=== PATIENT | male | born 2000 | race Caucasian/White ===

== ENCOUNTER 2023-05-09 05:32 | Emergency (ER) | payer OTHER, SELFPAY ==
--- NOTE | ~2023-05-09 | CT_ITS ---
EXAMINATION: CT abdomen pelvis w con DATE: 05/09/2023 06:25 INDICATION: Recurrent abdominal pain, nausea and vomiting TECHNIQUE: Computed tomography (CT) of the abdomen and pelvis was performed with 100 mL Omnipaque-350 intravenous contrast. Automated exposure control and iterative reconstruction technique were employe d. The dose-length product was 730.36 mGy-cm. COMPARISON: None FINDINGS: Lung bases are clear. Heart size is normal. No pericardial or pleural effusion. Liver, gallbladder, s pleen, pancreas, bilateral adrenal glands and kidneys are normal. There is a 2 mm nonobstructing ston e in the distal right ureter. Bowels including the appendix are normal. Bladder is normal. No free in traperitoneal gas or fluid. No pathologically enlarged abdominal or pelvic lymphadenopathy. Bones are unremarkable. IMPRESSION: 1. Nonobstructing 2 mm distal right ureteral stone. Reviewed, dictated and finalized at location A.
[2023-05-09 05:33] VITALS: BP 122/69; PULSE 56; RESP 14; TEMP 36.4; O2SAT 100
--- NOTE | 2023-05-09 05:44 | ED.GENADULT ---
HPI - General Adult General Chief complaint: Unspecified <Fauzia Reyes MD - Last Filed: 05/09/23 06:57> Stated complaint: R flank pain <Fauzia Reyes MD - Last Filed: 05/09/23 06:57> Time Seen by Provider: 05/09/23 05:43 <Fauzia Reyes MD - Last Filed: 05/09/23 06:57> History of Present Illness HPI narrative: 23-year-old male presents with acute onset right lower quadrant pain that started about 15 minutes prior to presentation here, with nausea. No symptoms like this before, no history of appendicitis or kidney stones. No testicular pain, no dysuria or hematuria no fevers or chills <Fauzia Reyes MD - Last Filed: 05/09/23 06:57> Related Data Allergies/adverse reactions: Allergies Allergy/AdvReac Type Severity Reaction Status Date / Time No Known Allergies Allergy Verified 05/09/23 05:48 <Fauzia Reyes MD - Last Filed: 05/09/23 06:57> Review of Systems Review of Systems: CONST: No fever. HEENT: No sore throat C/V: No chest pain RESP: No cough GI: Reports abdominal pain, nausea : No dysuria. M/S: No joint pain. SKIN: No rash. NEURO: [No headache or focal numbness or weakness] PSYCH: [No depression] <Fauzia Reyes MD - Last Filed: 05/09/23 06:57> Exam Narrative: EXAMINATION OF ORGAN SYSTEMS/BODY AREAS: Constitutional: Vital signs per nursing GENERAL: Appears quite uncomfortable HEAD: Normal with no signs of head trauma. EYES: EOMI, conjunctiva normal ENT: Hearing grossly intact LUNGS: Nonlabored breathing. HEART: [Regular rate and rhythm] ABD: [Soft], [tender to palpation] right lower quadrant EXT: Normal range of motion SKIN: [No rashes or lesions.] NEURO: [Alert and oriented x 3. No gross focal sensory or strength deficits.] PSYCH: Normal affect <Fauzia Reyes MD - Last Filed: 05/09/23 06:57> Course Reevaluation(s) Reevaluation #1: Patient care was signed out to me by Dr. Hsu. CT was pending at time of signout. CT did confirm a 2 mm ureteral stone. Patient was updated on the results of the work-up and plan for treatment at home. Patient was comfortable with the plan for discharge and close follow-up. Patient's pain was controlled at time of discharge. All questions concerns were addressed. <Jovanny Ortiz MD - Last Filed: 05/09/23 16:01> Vital Signs Vital signs: Vital Signs Temperature 97.5 F L 05/09/23 05:33 Pulse Rate 56 L 05/09/23 05:33 Respiratory Rate 14 05/09/23 05:33 Blood Pressure 122/69 05/09/23 05:33 Pulse Oximetry 100 05/09/23 05:33 Oxygen Delivery Room Air 05/09/23 05:33 Temperature 97.5 F L 05/09/23 05:33 Pulse Rate 60 05/09/23 08:22 Respiratory Rate 18 05/09/23 08:22 Blood Pressure 125/82 05/09/23 08:22 Pulse Oximetry 99 05/09/23 08:22 Oxygen Delivery Room Air 05/09/23 05:33 <Fauzia Reyes MD - Last Filed: 05/09/23 06:57> Vital Signs Temperature 97.5 F L 05/09/23 05:33 Pulse Rate 56 L 05/09/23 05:33 Respiratory Rate 14 05/09/23 05:33 Blood Pressure 122/69 05/09/23 05:33 Pulse Oximetry 100 05/09/23 05:33 Oxygen Delivery Room Air 05/09/23 05:33 Temperature 97.5 F L 05/09/23 05:33 Pulse Rate 60 05/09/23 08:22 Respiratory Rate 18 05/09/23 08:22 Blood Pressure 125/82 05/09/23 08:22 Pulse Oximetry 99 05/09/23 08:22 Oxygen Delivery Room Air 05/09/23 05:33 <Jovanny Ortiz MD - Last Filed: 05/09/23 16:01> Medical Decision Making MDM Narrative Medical decision making narrative: Electronic medical record was reviewed. Patient presented to the ED with complaint of [abdominal pain and vomiting]. Vitals [were within acceptable limits]. Physical exam revealed tenderness to the right lower quadrant, no CVA tenderness, patient quite uncomfortable. Based on the patient's history and physical exam, my differential includes but is not limited to [kidney stone, gastritis/gastroenteritis, appendicitis]. [IV access was established by nursing s
[2023-05-09 05:56] LABS: Basophils Absolute Auto 0.1 K/mm3 (0.0-0.1); Basophils Percent Auto 0.7 % (0.2-1.2); Eosinophils Absolute Auto 0.3 K/mm3 (0-0.3); Hematocrit 48.1 % (42.0-52.0); Hemoglobin 16.6 g/dL (14.0-18.0); Immature Granulocyte Absolute 0.03 K/mm3 (0.00-0.031); Immature Granulocyte Percent A 0.3 % (0-0.5); Lymphocytes Absolute Auto 3.89 K/mm3 (0.9-3.2); Lymphocytes Percent Auto 41.2 % (18.3-44.2); Mean Corpuscular HGB Conc 34.5 g/dl (32-36); Mean Corpuscular Hemoglobin 30.5 pg (26-34); Mean Corpuscular Volume 88.3 fl (80-100); Mean Platelet Volume 10.4 fl (7.4-10.4); Monocytes Absolute Auto 0.9 K/mm3 (0.1-0.6); Monocytes Percent Auto 9.8 % (2.6-8.5); Neutrophils Absolute Auto 4.3 K/mm3 (1.3-6.7); Platelet Count Result 295 k/mm3 (150-375); Red Blood Count 5.45 M/mm3 (4.6-6.20); Red Cell Distribution Width 11.9 % (11.5-14.5); White Blood Count 9.5 K/mm3 (4.5-10.0)
[2023-05-09] MEDS: MORPHINE SULFATE (*CRX) 4 MG/ML INJ IV PUSH (05:57)
[2023-05-09] MEDS: LACTATED RINGERS 1,000 ML 999 ML IV CONT (05:57)
[2023-05-09] MEDS: ONDANSETRON INJ 4 MG/2 ML VIAL IV PUSH (05:58)
[2023-05-09 06:06] LABS: Alanine Aminotransferase 48 U/L (6-50); Albumin Level 4.7 g/dL (3.5-5.1); Alkaline Phosphatase 98 U/L (38-126); Anion Gap 9 mmol/L (8-16); Aspartate Amino Transferase 42 U/L (17-59); Bilirubin,Total 1.3 mg/dL (0.2-1.3); Blood Urea Nitrogen 18 mg/dL (9-20); Calcium 9.6 mg/dL (8.4-10.2); Carbon Dioxide 25 mmol/L (22-30); Chloride 103 mmol/L (98-107); Estimated CRCL calculation 91 ml/min; Estimated Glomerular Filt Rate > 60; Glucose 134 mg/dL (65-110); Lipase 74 U/L (23-300); Potassium 3.8 mmol/L (3.4-5.0); Sodium 137 mmol/L (137-145)
[2023-05-09] MEDS: diphenhydrAMINE HCl INJ 50 MG/ML VIAL 25 MG IV PUSH (06:50)
[2023-05-09] MEDS: METOCLOPRAMIDE HCL INJ 10 MG/2 ML VIAL IV PUSH (06:51)
[2023-05-09] MEDS: HYDROmorphone HCL INJ (*CRX) 1 MG/ML SYR 0.5 MG IV PUSH (07:06)
[2023-05-09 07:11] VITALS: BP 115/73; PULSE 60; RESP 20; O2SAT 98
[2023-05-09] MEDS: TAMSULOSIN HCL 0.4 MG CAPSULE PO (08:11)
[2023-05-09 08:22] VITALS: BP 125/82; PULSE 60; RESP 18; O2SAT 99
[2023-05-09 08:26] LABS: Appearance Urine Clear (Clear); Bacteria Urine None Seen /hpf; Bilirubin Urine Negative (Negative); Blood Urine 2+ (Negative); Color Urine Yellow (Yellow); Glucose Urine UA Negative (Negative); Ketones Urine Negative (Negative); Leukocyte Esterase Ur Negative LEU/UL (Negative); Nitrate Urine Negative (Negative); Non Pathogenic Casts 0-2; Protein Urine Negative (Negative); Specific Grav Ur 1.063 (1.001-1.035); Squamous Epithelial Cell Urine None seen /hpf (Few); Urobilinogen Urine 0.2 mg/dL (<2.0); WBC Urine 0-5 /hpf; pH Urine 5.5 (5.0-9.0)
[2023-05-09 08:27] LABS: Add Urine Microscopic? YES
== END 2023-05-09 08:24 | disposition home or self-care (01) ==
PROVIDERS: Emergency Provider Emergency Medicine
DX: N20.1 Calculus of ureter (principal)
CPT/HCPCS: 36415; 74177; 80053; 81001; 83690; 85025; 96361; 96374; 96375; 99284; A9270; J1170; J1200; J2270; J2405; J2765; J7120; Q9967

== ENCOUNTER 2024-07-21 05:35 | Emergency (ER) | payer OTHER, SELFPAY ==
[2024-07-21] VITALS (7 sets, daily range): BP systolic 129–153; BP diastolic 82–92; PULSE 69–112; RESP 14–18; TEMP 36.2–36.8; O2SAT 97–100
--- NOTE | ~2024-07-21 | XR_ITS ---
EXAMINATION: XR foot LT min 3V DATE: 07/21/2024 07:26 INDICATION: Lateral left foot pain and swelling without injury TECHNIQUE: Dorsoplantar, two oblique and lateral views of the left foot were obtained. COMPARISON: None. FINDINGS: Alignment is normal. No fracture. Joint spaces are normal. There is soft tissue swelling along the la teral left forefoot. IMPRESSION: 1. No osseous abnormality. Reviewed, dictated and finalized at location A. IMPRESSION: 1. No osseous abnormality.
--- NOTE | 2024-07-21 06:28 | ED.EXTPRO ---
HPI - Extremity Problem General Chief complaint: Extremity Problem,Nontraumatic <Harley Madrid MD - Last Filed: 07/21/24 06:49> Stated complaint: foot pain <Harley Madrid MD - Last Filed: 07/21/24 06:49> Time Seen by Provider: 07/21/24 05:45 <Harley Madrid MD - Last Filed: 07/21/24 06:49> History of Present Illness HPI Narrative: Patient is a 24-year-old male who presents ER with pain to left ankle. Lateral aspect. Radiates towards calf at times. Today it is radiating towards mid foot. No numbness or tingling. No known trauma. <Harley Madrid MD - Last Filed: 07/21/24 06:49> Related Data Allergies/Adverse reactions: Allergies Allergy/AdvReac Type Severity Reaction Status Date / Time No Known Allergies Allergy Verified 05/09/23 05:48 <Harley Madrid MD - Last Filed: 07/21/24 06:49> Review of Systems Constitutional: Constitutional: Reports no additional constitutional complaints <Harley Madrid MD - Last Filed: 07/21/24 06:49> Musculoskeletal: Musculoskeletal: Reports arthralgias, Denies joint swelling and Denies muscle cramps <Harley Madrid MD - Last Filed: 07/21/24 06:49> Neurologic: Reports system reviewed and no additional complaints, except as documented <Harley Madrid MD - Last Filed: 07/21/24 06:49> PMFSH Past Medical History Medical History: Medical History (Updated 07/21/24 @ 11:09 by Dionna Car MD) Healthy adult male <Harley Madrid MD - Last Filed: 07/21/24 06:49> Surgical History Surgical History: Surgical History (Updated 07/21/24 @ 06:31 by Harley Madrid MD) No history of previous surgery <Harley Madrid MD - Last Filed: 07/21/24 06:49> Exam Narrative: GENERAL: Well-appearing, well-nourished, and in no acute distress. HEAD: Normocephalic, atraumatic. HEART: Regular rate and rhythm. Normal peripheral pulses. EXTREMITIES: Normal range of motion. No edema. mild tenderness over the ATFL of the left ankle. No swelling or redness. SKIN: Warm, dry, no rash. NEURO: No focal deficits in the left foot. Alert and oriented x3. PSYCH: Normal mood and affect. <Harley Madrid MD - Last Filed: 07/21/24 06:49> Course Course Emergency Course: Patient signed out to me at 7:00 a.m. patient pending Radiology interpretation of x-ray. Attending physician did not feel it was likely fractured and suspected an ankle sprain. X-ray negative. When I did go to discussed with the patient, patient is concerned about gout especially given that there was no preceding trauma or trip/misstep. He states he has had an episode before and has an extensive family history of gout. Will empirically treat initially with colchicine and obtain serum uric acid and reassess as there is singular joint involvement and the left lateral malleolus is red/erythematous, mildly tender though not not exquisitely. Acute Gout Diagnostic Rule Risk stratifies for gout versus gout arthritis Male sex (No 0, Yes +2): 2 Previous patient reported arthritis attack (No 0, Yes +2): 2 Onset within 1 day (No 0, Yes +0.5): 0 Joint redness (No 0, Yes +1): 1 1st metatarsophalangeal joint involvement (No 0, Yes +2.5): 0 Hypertension or >/= 1 cardiac diseases - angina, TN, CHF, stroke/TIA, PVD) (No 0. Yes +1.5): 0 Serum uric acid >5.88mg/dL/0.35 mmol/L (No 0, Yes +3.5): 3.5 Result : 8.5 points = 82.5% prevalence of gout in original study. Patient is given 1st dose of colchicine in the emergency department as well as NSAID medication. Upon re-evaluation notes the pain is slightly improving although still present. A 2nd dose of colchicine administered in addition to an opiate medication. Patient is reassessed at approximately 11:00 a.m. and states he is feeling much better. He was discharged home in stable condition and advised follow-up with primary care physician. Provided referral to 1. Given ED return precautions as wel
[2024-07-21 08:43] LABS: Uric Acid 10.7 mg/dL (3.5-8.5)
[2024-07-21] MEDS: COLCHICINE 0.6 MG TABLET 1.2 MG PO (09:11)
[2024-07-21] MEDS: NAPROXEN 500 MG TABLET PO (09:11)
[2024-07-21] MEDS: COLCHICINE 0.6 MG TABLET PO (10:06)
[2024-07-21] MEDS: HYDROcodone/acetaminophen (*CRX) 5-325 MG TABLET 1 TAB PO (10:06)
== END 2024-07-21 11:13 | disposition home or self-care (01) ==
PROVIDERS: Emergency Provider Student in an Organized Health Care Education/Training Program
DX: M10.9 Gout, unspecified (principal)
CPT/HCPCS: 36415; 73630; 84550; 99283; A9270